=== PATIENT | male | born 1950 | race Caucasian/White ===

== ENCOUNTER 2023-04-16 10:25 | Outpatient (CLI) | payer MEDICARE, SELFPAY ==
--- NOTE | 2023-04-16 08:34 | W.ANESCHARGE ---
Anesthesia Charges Start Date/Time Anesthesia Start Date: 04/16/23 Anesthesia Start Time: 12:00 Stop Date/Time Anesthesia Stop Date: 04/16/23 Anesthesia Stop Time: 12:30 Summary Extremes of Age - Over 70 or under 1: MDA
--- NOTE | 2023-04-16 12:33 | P.ANES_ITS ---
Anesthesia Charges Start Date/Time Anesthesia Start Date: 04/16/23 Anesthesia Start Time: 12:00 Stop Date/Time Anesthesia Stop Date: 04/16/23 Anesthesia Stop Time: 12:30 Summary Extremes of Age - Over 70 or under 1: [employer]
== END 2023-04-16 10:26 | disposition home or self-care (01) ==
PROVIDERS: PCP Family Medicine; Visit Provider Internal Medicine Gastroenterology
DX: R13.10 Dysphagia, unspecified (principal); K22.2 Esophageal obstruction; K22.70 Barrett's esophagus without dysplasia
CPT/HCPCS: 43239; 43248; 731; 88305; 99100; J2704

== ENCOUNTER 2024-02-13 07:23 | Outpatient (CLI) | payer MEDICARE, SELFPAY | END 2024-02-13 07:24 | disposition home or self-care (01) | PROVIDERS: PCP Family Medicine; Visit Provider Physician Assistant Medical | DX: R19.7 Diarrhea, unspecified (principal) | CPT/HCPCS: 87505 ==

== ENCOUNTER 2024-02-20 10:02 | Outpatient (CLI) | payer MEDICARE, SELFPAY | END 2024-02-20 10:03 | disposition home or self-care (01) | LOC: FRMREF 10:03 | PROVIDERS: PCP Family Medicine; Visit Provider Surgery | DX: L72.0 Epidermal cyst (principal); L08.9 Local infection of the skin and subcutaneous tissue, unspecified | CPT/HCPCS: 87070; 87205 ==

== ENCOUNTER 2024-03-17 07:07 | Outpatient (CLI) | payer MEDICARE, SELFPAY ==
--- NOTE | 2024-03-17 08:35 | W.ANESCHARGE ---
Anesthesia Charges Start Date/Time Anesthesia Start Date: 03/17/24 Anesthesia Start Time: 08:01 Stop Date/Time Anesthesia Stop Date: 03/17/24 Anesthesia Stop Time: 08:31
--- NOTE | 2024-03-17 09:47 | W.ANESCHARGE ---
Anesthesia Charges Start Date/Time Anesthesia Start Date: 03/17/24 Anesthesia Start Time: 08:01 Stop Date/Time Anesthesia Stop Date: 03/17/24 Anesthesia Stop Time: 08:31 Summary Extremes of Age - Over 70 or under 1: MDA
== END 2024-03-17 07:08 | disposition home or self-care (01) ==
PROVIDERS: PCP Family Medicine; Visit Provider Internal Medicine Gastroenterology
DX: K21.9 Gastro-esophageal reflux disease without esophagitis (principal); K22.70 Barrett's esophagus without dysplasia; K44.9 Diaphragmatic hernia without obstruction or gangrene
CPT/HCPCS: 00731; 43239; 88305; 99100; J2704; J3010

== ENCOUNTER 2024-04-02 08:07 | Emergency (ER) | payer MEDICARE, SELFPAY ==
[2024-04-02] VITALS (7 sets, daily range): BP systolic 107–124; BP diastolic 57–73; PULSE 79–98; RESP 14–20; TEMP 36.7; O2SAT 91–98; BMI 23.7
--- NOTE | 2024-04-02 08:34 | CRLHL7_ITS ---
For Patients: As a result of the 21st Century Cures Act, medical imaging exams and procedure reports are released immediately into your electronic medical record. You may view this report before your referring provider. If you have questions, please contact your health care provider. INDICATION: Pneumonia with clinical concern for pulmonary embolus. COMPARISON: None TECHNIQUE: : CT examination of the chest was performed with the uneventful intravenous administration of 95 cc of Isovue 370 while thin axial sections were obtained from above the apices of the lungs to the lung bases. The examination was timed as a pulmonary artery angiogram. Please note that all CT scans at this facility use dose modulation, iterative reconstruction, and/or weight-based dosing when appropriate to reduce radiation dose to as low as reasonably achievable. FINDINGS: : HEART and MEDIASTINUM: The heart size is normal. There is subcarinal lymphadenopathy, likely malignant. There is also right hilar, pretracheal and low right paratracheal lymphadenopathy also likely malignant. PULMONARY ARTERIAL CIRCULATION: There is no visible intraluminal filling defect to suggest pulmonary embolus. LUNGS and PLEURAL SPACES: LEFT LUNG AND LEFT PLEURAL SPACE: Minimal basilar atelectasis. Linear opacities in the inferior lingula likely atelectatic or fibrotic. No left pleural effusion RIGHT LUNG AND RIGHT PLEURAL SPACE: Dense masslike consolidation of the posterior segment of the right upper lobe extending all the way to the apex with bulging the major fissure and bulging of the minor fissure. Central low-density area. While this could be a large cavitary pneumonia, this is probably a primary lung neoplasm with central necrosis. There is also a mass or masslike opacity at the anterior junctional line low and medial within the anterior segment of the right upper lobe measuring 3.5 x 2.0 centimeters which is likely neoplastic. There are numerous nodules elsewhere in the right upper lobe which appear to be tree-in-bud nodules and are likely postobstructive inflammatory in nature. There are similar findings at the right lung base. No significant right pleural fluid. VISUALIZED UPPER ABDOMEN: Hepatic steatosis with focal fat near the falciform ligament. Right renal cyst. Mild ascites. No adrenal enlargement OSSEOUS STRUCTURES: Age-appropriate appearance. No acute fracture or destructive process.No destructive process of bone TUBES and LINES: None IMPRESSION: 1. There is no finding of acute pulmonary embolus. 2. Dense masslike consolidation of the posterior segment of the right upper lobe extending to the right apex. Central low-density area. While this could be a large cavitary pneumonia/abscess, I suspect this is a large primary lung neoplasm with central necrosis. There is a 2nd dominant nodule on the right, as described, likely neoplastic measuring 3.5 x 2.0 centimeters. Nodules elsewhere on the right as described are probably postobstructive inflammatory in nature. 3. Mediastinal lymphadenopathy, probably malignant. 4. Basilar atelectasis on the left and minimal scarring of the lingula. 5. No significant pleural fluid. No destructive process of bone Please note that all CT scans at this facility use dose modulation, iterative reconstruction, and/or weight-based dosing when appropriate to reduce radiation dose to as low as reasonably achievable. Dictated by Berny Elizondo MD @ 04/02/2024 10:43:15 AM (Electronically Signed)
--- NOTE | 2024-04-02 08:34 | CRLHL7_ITS ---
For Patients: As a result of the 21st Century Cures Act, medical imaging exams and procedure reports are released immediately into your electronic medical record. You may view this report before your referring provider. If you have questions, please contact your health care provider. INDICATION: Diarrhea. Clinical concern for colitis. COMPARISON: None TECHNIQUE: CT examination of the abdomen and pelvis was performed following the uneventful intravenous administration of 95 cc of Isovue 370. Thin section axial images were obtained from the lung bases through the pubic symphysis. Oral contrast was not administered. Please note that all CT scans at this facility use dose modulation, iterative reconstruction, and/or weight-based dosing when appropriate to reduce radiation dose to as low as reasonably achievable. FINDINGS: LUNG BASES: Abnormal opacities at the right lung base probably inflammatory. Please review the report of the separate chest CT.The heart size is normal at the lung bases. Small hiatal hernia. LIVER/BILIARY SYSTEM:The liver is normal in size and configuration. There is no focal mass and there is no intra- or extra hepatic biliary ductal dilatation.Hepatic steatosis with focal fat at the falciform ligament. The gallbladder appears normal ADRENALS: Normal KIDNEYS, URETERS and BLADDER:Right renal cyst. The kidneys are otherwise unremarkable. No evidence of obstructive uropathy. SPLEEN:No definite focal finding. PANCREAS: Appears normal. RETROPERITONEUM and MESENTERY: No adenopathy or mass. Atherosclerotic vascular calcifications without aneurysm. 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 There is reconstitution of the left common femoral artery near the inguinal ligament. The left lower extremity runoff is not visible on this exam. Correlate with any symptoms on the left/pulses. GASTROINTESTINAL SYSTEM: There is no evidence of diverticulitis, colitis, mechanical obstruction, or appendicitis. The small bowel as visualized appears normal.Diverticulosis. No evidence of colitis as questioned clinically. No visible acute inflammatory process of bowel. PELVIS: No adenopathy or mass. OSSEOUS STRUCTURES and ABDOMINAL WALL: There is an age-appropriate appearance of the osseous structures.No significant abdominal wall defect. OTHER: No free air. There is mild ascites of uncertain etiology. IMPRESSION: 1. Right basilar lung opacities probably inflammatory. Please review the separate chest CT report. 2. There is no evidence of colitis as questioned clinically. There is diverticulosis but no acute appearing finding involving small bowel or colon. 3. There is a small amount of ascites of uncertain etiology. No free air or collection. 4. Atherosclerotic vascular calcifications. The left iliac arterial system is occluded just beyond the aortic bifurcation with reconstitution of the left common femoral artery near the inguinal ligament. Correlate with any symptoms in the left lower extremity and/or pulses as warranted clinically. 5. Other nonacute appearing findings as discussed in the body of the report Please note that all CT scans at this facility use dose modulation, iterative reconstruction, and/or weight-based dosing when appropriate to reduce radiation dose to as low as reasonably achievable. Dictated by Berny Elizondo MD @ 04/02/2024 10:34:00 AM (Electronically Signed)
--- NOTE | 2024-04-02 08:36 | ED.GENADULT ---
HPI - General Adult General Chief complaint: Diarrhea Stated complaint: Pneumonia, shortness of breath, diarrhea Time Seen by Provider: 04/02/24 08:16 History of Present Illness HPI narrative: Patient is a 73 year white male who reports he has been sick for about the last 3 months, he has had a cough and felt she limit short of breath for the last week and went to his doctor was told he had right-sided pneumonia. Started on Zithromax and cefuroxime yesterday took a couple of pills and has diarrhea, feels little more short of breath, feels weak. He fell from a 1st round of antibiotics a few weeks ago that he got sick and had diarrhea from that as well. He tested negative for C diff at that time. He reports he is generally healthy although he does have a history of hypertension urinary retention gout history of a wound that is been seen by Dr. Dougherty. Related Data Home Medications ?Medication ?Instructions ?Recorded ?Confirmed allopurinol 100 mg tablet 100 mg PO DAILY 02/05/24 03/26/24 amlodipine 10 mg tablet 10 mg PO DAILY 02/05/24 03/26/24 atenolol 50 mg tablet 50 mg PO DAILY 02/05/24 03/26/24 atorvastatin 40 mg tablet 40 mg PO DAILY 02/05/24 03/26/24 chlorthalidone 25 mg tablet 25 mg PO DAILY 02/05/24 03/26/24 famotidine 20 mg tablet 20 mg PO BID 02/05/24 03/26/24 potassium citrate 10 mEq (1,080 10 meq PO DAILY 02/05/24 03/26/24 mg) tablet,extended release tamsulosin 0.4 mg capsule mg PO DAILY 02/05/24 03/26/24 Allergies Allergy/AdvReac Type Severity Reaction Status Date / Time No Known Drug Allergies Allergy Verified 04/02/24 10:19 Review of Systems Status of ROS: Reports: 6 or more systems reviewed and unremarkable except as noted in History and below [facility] Medical History History of common carotid artery stent placement ?Z98.890 - Other specified postprocedural states (ICD-10) ?Z95.828 - Presence of other vascular implants and grafts (ICD-10) Gout ?M10.9 - Gout, unspecified (ICD-10) Urinary retention ?R33.9 - Retention of urine, unspecified (ICD-10) HTN (hypertension) ?I10 - Essential (primary) hypertension (ICD-10) Diarrhea ?R19.7 - Diarrhea, unspecified (ICD-10) Infected epidermoid cyst ?L72.0 - Epidermal cyst (ICD-10) ?L08.9 - Local infection of the skin and subcutaneous tissue, unspecified (ICD-10) Surgical History History of tonsillectomy ?Z90.89 - Acquired absence of other organs (ICD-10) H/O carotid endarterectomy ?Z98.890 - Other specified postprocedural states (ICD-10) Social History Narrative: Rare etoh, non-smoker, retired sprayer automatic spray machine Smoking Status: Never smoker Do you use any of these nicotine containing products: None Second hand tobacco smoke exposure: No How often do you have a drink containing alcohol: never How often do you have six or more drinks on one occasion: Never AUDIT-C Alcohol total score: 0 Non-prescribed substance use: denies use service: No Exam Narrative: Exam Narrative: Objective: Vital signs look within normal limits his O2 sat is excellent at 93% Alert orient x3 HEENT is unremarkable no facial asymmetry mouth slightly dry neck is supple chest is diminished air exchange bilaterally some wheezes at the bases that clear with deep breathing overall air exchange is diminished Heart rhythm regular 2/6 systolic murmur occasional ectopic beat Abdomen benign soft nontender Extremities are no edema Neurologic nonfocal good peripheral perfusion upper lower extremities. Const: Vital Signs, click to edit/add: Vital Signs - 24 hr 04/02/24 08:20 04/02/24 08:33 04/02/24 12:02 Temperature 98.1 F Pulse Rate 84 Pulse Rate [Right Pulse Oximeter] 98 Respiratory Rate 20 18 Blood Pressure 108/73 Blood Pressure [Ri ght Upper Arm] 117/57 L Pulse Oximetry 93 98 92 Oxygen Delivery Me thod Room Air 04/02/24 12:33 04/02/24 13:02 04/02/24 14:38 Temperature Pulse Rate 79 81 90 Pulse Rate [Right Pulse Oximeter] Respiratory Rate 16 14 16 Blood Pressure 107/57 L 120/64 124/67 Blood Pressure [Ri ght Upper Arm] Pulse Oximetry 91 91 93 Oxygen Delivery Me thod Room Air 04/02/24 15:03 Temperature 98.1 F Pulse Rate Pulse Rate [Right Pulse Oximeter] 98 Respiratory Rate 16 Blood Pressure Blood Pressure [Ri ght Upper Arm] 117/57 L Pulse Oximetry Oxygen Delivery Me thod Course Vital Signs Vital signs: Initial Vital Signs Temperature 98.1 F 04/02/24 08:20 Temperature Source Temporal Artery Scan 04/02/24 08:20 Pulse Rate 98 04/02/24 08:20 Pulse Rhythm Regular 04/02/24 08:20 Pulse Strength 3+ Normal 04/02/24 08:20 Respiratory Rate 20 04/02/24 08:20 Blood Pressure 117/57 L 04/02/24 08:20 Blood Pressure Mean 77 04/02/24 08:20 Blood Pressure Position Sitting 04/02/24 08:20 Pulse Oximetry 93 04/02/24 08:20 Oxygen Delivery Method Room Air 04/02/24 08:20 Vital Signs Temperature 98.1 F 04/02/24 08:20 Pulse Rate 98 04/02/24 08:20 Respiratory Rate 20 04/02/24 08:20 Blood Pressure 117/57 L 04/02/24 08:20 Pulse Oximetry 93 04/02/24 08:20 Oxygen Delivery Method Room Air 04/02/24 08:20 Temperature 98.1 F 04/02/24 15:03 Pulse Rate 98 04/02/24 15:03 Respiratory Rate 16 04/02/24 15:03 Blood Pressure 117/57 L 04/02/24 15:03 Pulse Oximetry 93 04/02/24 14:38 Oxygen Delivery Method Room Air 04/02/24 13:02 Medications Administered Medications: Discontinued Medications Generic Name Dose Route Start Last Admin Trade Name Freq PRN Reason Stop Dose Admin Sodium Chloride 500 mls @ 500 mls/hr 04/02/24 08:35 04/02/24 10:24 0.9 % Sodium Chloride 500 Ml IV 04/02/24 09:34 Infused .Q1H ONE Infusion Piperacillin Sod/Tazobactam 100 mls @ 200 mls/hr 04/02/24 11:19 04/02/24 13:29 Sod 4.5 gm/ Sodium Chloride IVPB 04/02/24 11:20 Infused ONCE ONE Infusion Metronidazole 500 mg in 100 mls @ 100 mls/hr 04/02/24 11:22 04/02/24 13:29 Metronidazole IVPB 04/02/24 12:21 Infused ONCE ONE Infusion Potassium Chloride 20 meq 04/02/24 09:55 04/02/24 10:24 Potassium Chloride 10 Meq Capsule Er PO 04/02/24 09:56 20 meq ONCE ONE Administration Medical Decision Making MDM Narrative Medical decision making narrative: [age] white male with several month history of illness, now with a week-long history of cough and shortness of breath with diagnosis of pneumonia. No started on antibiotics cefuroxime and Zithromax, patient has taken a couple of doses has diarrhea and feels weak, little bit more short of breath. I think at this point to be reasonable to check a CT scan to ensure that this is pneumonia not PE or tumor. I do not have x-rays for review. Will also check a CT scan of his abdomen pelvis with IV contrast to exclude colitis and make sure he does not have C diff evidence will also check a C diff toxin. Will check electrolytes labs give IV fluid. Disposition pending findings above. Addendum 11:13 a.m. patient has what appears to be a cavitary lung lesion verses medicine static disease in his long as well as a primary lung cancer. I think he is going to need tertiary care probable biopsy, antibiotic treatment, will make arrangements through [facility], the family is requesting [facility]. Will talk to the hospitalist there. Lab Data Labs: Lab Results 04/02/24 04/02/24 04/02/24 Range/Units 08:35 09:12 09:15 WBC 16.19 H (4.50-11.00) K/uL RBC 3.33 L (4.30-5.90) m/uL Hgb 9.5 L (13.5-17.5) gm/dL Hct 30.3 L (37.0-53.0) % MCV 91 (80-100) fL MCH 29 (26-34) pg MCHC 31 L (32-36) gm/dL RDW Coeff of Carine 15.5 (11.5-15.5) % Plt Count 347 (140-440) K/uL Neut % (Auto) 90.4 H (42.0-72.0) % Lymph % (Auto) 4.3 L (20-44) % [place] % (Auto) 4.3 (0.0-11.0) % Eos % (Auto) 0.2 (0.0-7.0) % Baso % (Auto) 0.1 (0.0-3.0) % Neut # (Auto) 14.60 H (1.7-7.0) K/uL Lymph # (Auto) 0.70 L (0.90-2.90) K/uL [place] # (Auto) 0.70 (0.00-0.90) K/UL Eos # (Auto) 0.00 (0.00-0.50) K/uL Baso # (Auto) 0.00 (0.00-0.30) K/uL Abs Immat Gran (auto) 0.10 (0.00-0.30) K/uL Imm/Tot Granulo (auto) 0.7 % Sodium 131 L (135-149) mmol/L Potassium 3.0 L (3.6-5.1) mmol/L Chloride 98 (96-114) mmol/L Carbon Dioxide 28 (20-32) mmol/L Anion Gap 5 L (7-15) mEq/L BUN 20 (7-30) mg/dL Creatinine 1.0 (0.5-1.5) mg/dL Estimated Creat Clear 68.94 Estimated GFR 80 ml/min Glucose 148 H (60-115) mg/dL Lactate 1.2 (0.5-1.9) mmol/L Calcium 8.0 L (8.4-10.6) mg/dL C-Reactive Protein 16.0 H (0.5-1.0) mg/dL NT-Pro-B Natriuret Pep 990 pg/mL SARS-CoV-2 (PCR) Negative SARS-CoV-2 (Negative) Influenza Type A (PCR) Negative PCR FLU A (Negative) Influenza Type B (PCR) Negative PCR FLU B (Negative) RSV (PCR) Negative PCR RSV (Negative) POC Troponin I 0.01 (0.01-0.04) ng/ml Discharge Plan Discharge Clinical Impression: Diarrhea, Weakness, Pneumonia, Lung cancer Patient Disposition: Xfer Other Prescriptions: No Action atorvastatin 40 mg tablet 40 mg PO DAILY chlorthalidone 25 mg tablet 25 mg PO DAILY atenolol 50 mg tablet 50 mg PO DAILY potassium citrate 10 mEq (1,080 mg) tablet extended release 10 meq PO DAILY amlodipine 10 mg tablet 10 mg PO DAILY tamsulosin 0.4 mg capsule PO DAILY famotidine 20 mg tablet 20 mg PO BID allopurinol 100 mg tablet 100 mg PO DAILY [facility]
[2024-04-02 09:21] LABS: Lactate* 1.2 mmol/L (0.5-1.9)
[2024-04-02 09:24] LABS: Basophils Percent Auto 0.1 % (0.0-3.0); Eosinophils Percent Auto 0.2 % (0.0-7.0); Hematocrit 30.3 % (37.0-53.0); Hemoglobin* 9.5 gm/dL (13.5-17.5); Immature Granulocytes Pct Auto 0.7 %; Lymphocytes Percent Auto 4.3 % (20-44); Mean Corpuscular HGB Conc 31 gm/dL (32-36); Mean Corpuscular Hemoglobin 29 pg (26-34); Mean Corpuscular Volume 91 fL (80-100); Monocytes Percent Auto 4.3 % (0.0-11.0); Neutrophils Percent Auto 90.4 % (42.0-72.0); Platelet Count* 347 K/uL (140-440); RDW Coefficient of Variation % 15.5 % (11.5-15.5); Red Blood Count 3.33 m/uL (4.30-5.90); White Blood Count* 16.19 K/uL (4.50-11.00)
[2024-04-02] MEDS: 0.9 % SODIUM CHLORIDE 500 ML 500 ML IV (09:24)
[2024-04-02 09:32] LABS: Slide Review Reflex No
[2024-04-02 09:39] LABS: Chloride* 98 mmol/L (96-114)
[2024-04-02 09:40] LABS: Sodium* 131 mmol/L (135-149)
[2024-04-02 09:42] LABS: Est. Creatinine Clearance* 68.94; Estimated Glomerular Filt Rate 80 ml/min
[2024-04-02 09:43] LABS: Anion Gap 5 mEq/L (7-15); Blood Urea Nitrogen* 20 mg/dL (7-30); Carbon Dioxide* 28 mmol/L (20-32); Glucose* 148 mg/dL (60-115)
[2024-04-02 10:00] LABS: Troponin, Point-of-Care* 0.01 ng/ml (0.01-0.04)
[2024-04-02 10:11] LABS: PCR FLU A Negative PCR FLU A (Negative); PCR FLU B Negative PCR FLU B (Negative); PCR RSV Negative PCR RSV (Negative); SARS PCR* Negative SARS-CoV-2 (Negative)
[2024-04-02 10:20] LABS: NT Pro B Type NatriureticPept* 990 pg/mL
[2024-04-02] MEDS: POTASSIUM CHLORIDE 10 MEQ CAPSULE ER 20 MEQ PO (10:24)
[2024-04-02] MEDS: PIPERACILLIN/TAZOBACTAM 4.5 GM in 0.9 % SODIUM CHLORIDE Mini-bag 100 ML IVPB (11:52)
[2024-04-02] MEDS: metroNIDAZOLE 500 MG/100 ML PIGGYBACK 100 MG IVPB (11:57)
== END 2024-04-02 15:04 | disposition other institution (70) ==
PROVIDERS: Emergency Provider Family Medicine; PCP Family Medicine
DX: J18.9 Pneumonia, unspecified organism (principal); R19.7 Diarrhea, unspecified; C34.00 Malignant neoplasm of unspecified main bronchus; R06.02 Shortness of breath
CPT/HCPCS: 36415; 71275; 74177; 80048; 83605; 83880; 84132; 84484; 85025; 86140; 87045; 87046; 87427; 87493; 87631; 94761; 96365; 96366; 99285; A9270; J1836; J2543; J7030; Q9967

== ENCOUNTER 2024-06-12 07:46 | Outpatient (CLI) | payer MEDICARE, SELFPAY | END 2024-06-12 07:47 | disposition home or self-care (01) | PROVIDERS: PCP Family Medicine; Visit Provider Physician Assistant Medical | DX: R19.7 Diarrhea, unspecified (principal) | CPT/HCPCS: 87493; 87505 ==